=== PATIENT | female | born 1960 | race Caucasian/White ===

== ENCOUNTER → 2017-01-24 | Outpatient (CLI) | payer BC ==
[~2017-01-24] MED LIST: DULO60CA6 PO; GABA-586 PO; GADOBUTROL 7.5 MMOL/7.5 ML VIAL IV ONE; INTE0.3V2 SQ; LEVO50TA5 PO; ROPI1TAB PO
--- NOTE | 2017-01-24 15:38 | KCIC ---
EXAM: MRI BRAIN WITH AND WITHOUT CONTRAST. HISTORY: Multiple sclerosis. Fatigue. Bilateral lower extremity weakness. TECHNIQUE: Magnetic resonance images of the brain were obtained before and after the intravenous administration of 7 mL Gadavist. COMPARISON: November 04, 2015. FINDINGS: There are no enhancing lesions. One hyperintense focus along the right inferior frontal lobe on the coronal series is likely volume averaging with a cortical vein on comparison with the axial series. There is no diffusion restriction. There are a few periventricular T2/FLAIR hyperintense white matter lesions consistent with given history of multiple sclerosis. The largest is in the left posterior temporal white matter and measures 1 x 0.4 cm. There are approximately 5 periventricular lesions and a few additional tiny subcortical lesions. No posterior fossa lesions are seen. The ventricles are normal in size and position. The paranasal sinuses are clear. The orbits are unremarkable. The temporal bones are unremarkable. The calvarium demonstrates no suspicious lesions. IMPRESSION: 1. A few periventricular white matter lesions are consistent with the given history of multiple sclerosis. No enhancing lesions suggestive of active demyelination. Electronically signed by: Kristofer Brooks MD (01/24/2017 3:35 PM) [facility]
== END | disposition home or self-care (01) ==
LOC: KCIC MRI 13:25
PROVIDERS: ATTEND Psychiatry & Neurology Neurology with Special Qualifications in Child Neurology
DX: G35 Multiple sclerosis (principal)
CPT/HCPCS: 70553; A9585

== ENCOUNTER → 2018-01-03 | Outpatient (CLI) | payer BC | END | disposition home or self-care (01) | LOC: RAD 12:40 | DX: N20.0 Calculus of kidney (principal) | CPT/HCPCS: 74018 ==

== ENCOUNTER → 2018-02-14 | Outpatient (CLI) | payer BC | END | disposition home or self-care (01) | LOC: ECHO 10:22 | DX: I07.1 Rheumatic tricuspid insufficiency (principal); I10 Essential (primary) hypertension; M79.606 Pain in leg, unspecified | CPT/HCPCS: 93306 ==

== ENCOUNTER → 2019-06-16 | Outpatient (CLI) | payer BC ==
[2017-09-27 14:35] VITALS: BP 156/81
[~2019-06-16] MED LIST changes: +CHOL2000 PO; -GABA-586 PO; +GABA300C18 PO; -GADOBUTROL 7.5 MMOL/7.5 ML VIAL IV ONE; +IBUP-1060 PO; +REGADENOSON 0.4 MG/5 ML DISP.SYRIN. IV ONE; +TRAM50TA PO; +VIT1TABL8 PO; +VITA100020 PO
--- NOTE | 2019-06-16 13:57 | RAD ---
MR#: [id number] Date of Study: 06/16/2019 Ordering Physician: PARADISE WRIGHT Referring Physician: RAMO MARTE Tech: RT Derek Oshea) (N) APPROVED REPORT Test Type: Pharmacological Stress Nurse/Tech: Grazyna Barker R.N. Test Indications: BRIZUELA Cardiac History: Family history Medications: Zocor Medical History: See Electronic Medical Record Resting ECG: SR Resting Heart Rate: 68 bpm Resting Blood Pressure: 137/71mmHg Pretest Chest Pain: No chest pain Nurse/Tech Notes S1S2, lungs CTA Consent: The procedure was explained to the patient in lay terms. Informed consent was witnessed. Joe eout was entered into [employer]. History and Stress Test performed by RT Derek Hurtado) (N) Pharm. Details Pharmacologic stress testing was performed using 0.4mg per 5ml of regadenoson given intravenously ove r 7-10 seconds. Stress Symptoms SOA, h/a POST EXERCISE Reason for Termination: Infusion complete Max HR: 85 bpm Max Blood Pressure: 131/69mmHg Blood Pressure response to exercise: Normal blood pressure response during stress. Heart Rate response to exercise: wnl Chest Pain: No. Arrhythmia: No. ST Change: No. INTERPRETATION Stress EKG Conclusion: Baseline EKG showed sinus rhythm. No ischemic changes at peak stress. No arr hythmias. Imaging Protocol IMAGE PROTOCOL: Rest Tc-99m/stress Tc-99m 1 day Rest: Stress: Viability: Radiopharm.Tc99m UegonlljvEg86z Sestamibi Bkas70tBs 33mCi Duration 13min. 13min. Img Date 06/16/2019 06/16/2019 Inj-Img Lrss84vcc. 60min. Rest Admin Site:IV - Right AntecubitalAdministrator:RT Genesis (R)(N) Stress Admin Site: IV - Right AntecubitalAdministrator: DARIUS Maldonado STRESS DATA End Diast. Vol.38.0mlLVEDV index BSA20.0ml End Syst. Vol.1.0mlLVESV index BSA0.0ml Myocardial Mass81.0gEject. Ufyogvpp45.0% Stress Scores Regional WT0.00Summed WT0.00 Regional WM0.00Summed WM0.00 Study quality was good. Left Ventricular size was Normal at Rest and Stress. Lung uptake was . Left Ventricular ejection fraction is >80%. The rest and stress images show normal perfusion, normal contraction and thickening. LV Perf. Quant 17 Seg. SSS0.00 17 Seg. SRS0.00 17 Seg. SDS0.00 Stress Defect Extent (% LAD)0.00Rest Defect Extent (% LAD)0.00Rev. Defect Extent (% LAD)0.00 Stress Defect Extent (% LCX) 0.00Rest Defect Extent (% LCX)0.00Rev. Defect Extent (% LCX)0.00 Stress Defect Extent (% RCA)0.00Rest Defect Extent (% RCA)0.00Rev. Defect Extent (% RCA)0.00 Stress Defect Extent (% MARILEE)0.00Rest Defect Extent (% MARILEE)0.00Rev. Defect Extent (% MARILEE)0.00 Conclusion 1. Regadenoson cardioisotope stress test did not show any evidence of ischemia or infarct. 2. Normal left ventricular systolic function with ejection fraction calculated at >80%. 3. Low risk for cardiac events. Signed by : Paradise Wright, Electronically Approved : 06/16/2019 13:57:18
== END | disposition home or self-care (01) ==
LOC: NM 09:43
PROVIDERS: ATTEND Internal Medicine Cardiovascular Disease
DX: R06.09 Other forms of dyspnea (principal)
CPT/HCPCS: 78452; 93017; A9500; J2785

== ENCOUNTER → 2019-06-18 | Outpatient (CLI) | payer BC ==
[2017-09-27 14:35] VITALS: BP 156/81
[~2019-06-18] MED LIST changes: -REGADENOSON 0.4 MG/5 ML DISP.SYRIN. IV ONE
--- NOTE | 2019-06-18 10:44 | CARD ---
MR#: [id number] Date of Study: 06/18/2019 Ordering Physician: PARADISE WRIGHT, Referring Physician: Mario MARTE: Domitila Hoyt APPROVED REPORT EXAM: Two-dimensional and M-mode echocardiogram with Doppler and color Doppler. Other Information Quality : AverageHR: 74bpm INDICATION BRIZUELA 2D DIMENSIONS RVDd2.3 (2.9-3.5cm)Left Atrium(2D)3.1 (1.6-4.0cm) IVSd1.0 (0.7-1.1cm)Aortic Root(2D)1.9 (2.0-3.7cm) LVDd3.5 (3.9-5.9cm)LVOT Diameter1.8 (1.8-2.4cm) PWd1.0 (0.7-1.1cm)IVSs1.6 (0.8-1.2cm) PWs1.6 (0.8-1.2cm) Aortic Valve AoV Peak Heath.117.5cm/sAoV VTI25.3cm AO Peak GR.5.5mmHgLVOT Peak Heath.116.9cm/s AO Mean GR.3mmHgAVA (VMAX)2.66cm2 Mitral Valve MV E Oqghhdhp92.0cm/sMV E Peak Gr.5mmHg MV DECEL [id number] A Gbsprsgk31.6cm/s MV E Mean Gr.2mmHgE/A Ratio0.8 Pulmonary Valve PV Peak Iaegwcvf176.0cm/s Tricuspid Valve TR P. Nyuendjd575nd/sRAP QMOMNQJB2beQg TR Peak Gr.38njOsQMKK61hhZv Pulmonary Vein S1 Pjppxaxf48.2cm/sD2 Aibutggh57.1cm/s LEFT VENTRICLE The left ventricle is normal size. There is normal left ventricular wall thickness. The left ventricu lar systolic function is normal. The Ejection Fraction is 60-65%. There is normal LV segmental wall m otion. RIGHT VENTRICLE The right ventricle is normal size. The right ventricular systolic function is normal. ATRIA The left atrium size is normal. The right atrium size is normal. The interatrial septum is intact wit h no evidence for an atrial septal defect or patent foramen ovale as noted on 2-D or Doppler imaging. AORTIC VALVE The aortic valve is normal in structure and function. Doppler and Color Flow revealed no significant aortic regurgitation. There is no significant aortic valvular stenosis. MITRAL VALVE The mitral valve is thickened but opens well. There is no evidence of mitral valve prolapse. There is no mitral valve stenosis. Doppler and Color-flow revealed trace mitral regurgitation. TRICUSPID VALVE The tricuspid valve is normal in structure and function. Doppler and Color Flow revealed mild tricusp id regurgitation with an estimated PAP of 23 mmHg. There is no tricuspid valve stenosis. PULMONIC VALVE The pulmonic valve is not well visualized. Doppler and Color Flow revealed no pulmonic valvular regur gitation. GREAT VESSELS The aortic root is normal in size. The ascending aorta is normal in size. The IVC is normal in size a nd collapses >50% with inspiration. PERICARDIAL EFFUSION There is no pleural effusion. There is no evidence of significant pericardial effusion. Critical Notification Critical Value: No <Conclusion> The left ventricular systolic function is normal. The Ejection Fraction is 60-65%. There is normal LV segmental wall motion. Trace mitral regurgitation. Mild tricuspid regurgitation with an estimated PAP of 23 mmHg. There is no evidence of significant pericardial effusion. Signed by : Paradise Wright, Electronically Approved : 06/18/2019 10:43:41
== END | disposition home or self-care (01) ==
LOC: ECHO 09:30
PROVIDERS: ATTEND Internal Medicine Cardiovascular Disease
DX: I36.1 Nonrheumatic tricuspid (valve) insufficiency (principal)
CPT/HCPCS: 93306